=== PATIENT | female | born 2000 | race Caucasian/White ===

== ENCOUNTER 2020-08-20 08:56 | Emergency (ER) | payer BC, SELFPAY ==
[2020-08-20 08:58] VITALS: BP 118/61; PULSE 152; RESP 16; TEMP 36.6; O2SAT 98; BMI 24.2
[2020-08-20 09:04] VITALS: O2SAT 98
[2020-08-20 09:09] VITALS: BP 118/59; PULSE 121; RESP 20; O2SAT 99
--- NOTE | 2020-08-20 09:14 | EKG12_ITS ---
Test Reason : SOB/PALPS Blood Pressure : / mmHG Vent. Rate : 137 BPM Atrial Rate : 137 BPM P-R Int : 128 ms QRS Dur : 094 ms QT Int : 298 ms P-R-T Axes : 065 108 009 degrees QTc Int : 449 ms Sinus tachycardia Rightward axis Nonspecific ST and T wave abnormality Abnormal ECG Confirmed by CHANDLER SHEFFIELD, BELEM ([id number]), deputy editor in chief VICKEY CORDOBA ([id number]) on 08/22/2020 9:47:26 AM Referred By: JACKIE Confirmed By:BELEM ARTEAGA MD
--- NOTE | 2020-08-20 09:15 | NURSING ---
NO OLD EKGS
--- NOTE | 2020-08-20 09:16 | CT_ITS ---
STUDY: CTA CHEST REASON FOR EXAM: Female, 20 years old. Dyspnea RADIATION DOSAGE (If Supplied By Facility): CTDIvol = ( 4.88 ) mGy, DLP = ( 167.65 ) mGycm TECHNIQUE: The examination was performed with the intravenous administration of IV 100mL Isovue-370. Post-processing of the angiographic images was performed, with multiplanar reformation and 3D reconstruction. Individualized dose optimization techniques were used for this CT. COMPARISON: None. FINDINGS: Multiple filling defects are seen in branches of the left lower lung pulmonary arteries. Small intraluminal filling defects in the right lower lobe pulmonary lesion as well. Normal thoracic aorta and visualized great vessels. There is no demonstrated aortic dissection. Normal heart and pericardium. Normal mediastinum. Normal hilar regions. Normal visualized trachea and bronchi. The lungs are well expanded. Mild bibasilar linear atelectasis. Normal pleura. Normal chest wall structures. Normal osseous structures. Normal visualized upper abdomen. CT/CTA Chest W/WO Contrast IMPRESSION: Intraluminal filling defects in both lower lobe pulmonary artery branches worse on the left side. Mild bibasilar atelectasis Electronically Signed: Alfonso Segura MD at 10:37 EDT , Service support ,
--- NOTE | 2020-08-20 09:17 | ED.DCSUM_ITS ---
- ER Visit Summary Date of Service: 08/20/20 Chief Complaint: Shortness of breath History of Present Illness: The patient is a 20 F who presents with shortness of breath that began this morning. Patient states she woke up feeling short of breath. Patient states she felt her heart racing. Patient states she has a stabbing pain in her chest whenever she takes a deep breath. Patient states her pain is also worse whenever she lays on her side. Patient states that she also feels like she has trouble expelling her breath. Patient admits to a slight cough. Patient admits to some nausea but denies any vomiting. Patient denies any fevers or chills. Patient denies any recent travel or recent surgery. Patient denies any history of DVT or PE. Patient denies any history of cancer. Physical Examination: Vital signs are stable except for tachycardia of 152. Patient is afebrile. Patient is in no acute distress. Oral mucosa is pink and moist. Neck is supple. Trachea is midline. There is no JVD. Heart was regular and tachycardic. Lungs are clear and equal bilaterally. Abdomen is soft. Bowel sounds are normal. There is no tenderness. Cranial nerves II through XII are intact. There are no focal motor or sensory deficits noted. Extremities are intact. There is no calf tenderness or edema. Test Results: EKG was obtained. On my interpretation, it showed a sinus tachycardia with a rate of 137. ID interval, QRS interval, and QTc intervals were all normal. [place] was 108. There are nonspecific ST-T wave changes in the inferior leads. CBC shows a leukocytosis of 15.7. Comprehensive metabolic profile showed a mild hypokalemia 3.2. CTA of the chest was obtained. There are intraluminal filling defects in both lower lobes, worse on the left. This was interpreted by the radiologist and reviewed by myself. Emergency Department Course and Treatment: Patient was given IV fluids. Patient's heart rate improved to 115. Patient was started on Eliquis. Patient was given a prescription for Eliquis. Patient was instructed to follow-up with her primary care physician in 5 to 7 days. Patient understood and was agreeable with the plan. All questions were answered. Disposition: Discharge home Impression: Pulmonary embolism This note was generated with [employer] dictation software. It may contain incorrect words, spelling, and punctuation that were not noted in review of the chart prior to signing ED Disposition - Plan for ED Patient: Disposition: Home or Assisted Living Diagnosis: Pulmonary embolism Instructions: Pulmonary Embolism Prescriptions: Apixaban [Eliquis] 5 mg PO BID #74 tablet Prescription Printed Referrals: Jude Peace MD [Primary Care Provider] - 5-7 Days
[2020-08-20 09:37] LABS: Absolute Lymphocyte Count 0.35 X10^3/uL (0.83-4.51); Absolute Neutrophil Count 14.6 X10^3/uL (2.0-7.7); Basophil# 0.03 X10^3/uL; Basophil% 0.2 % (0-1); Hematocrit 37.4 % (37-47); Lymphocyte # 0.35 X10^3/ul (4.0); Lymphocyte % 2.2 % (19-41); Mean Corp Hgb Conc 32.1 g/dL (32-36); Mean Corpuscular Hgb 27.7 pg (27.0-32.0); Mean Corpuscular Volume 86.4 fL (81-99); Mean Platelet Vol. 9.8 fl (6.2-12.0); Monocyte# 0.64 X10^3/uL; Monocyte% 4.1 % (0-10); NRBC Flagged by Analyzer 0 % (0-5); Neutrophil # 14.63 X10^3/uL (2.7-7.7); Neutrophil % 93.1 % (47-70); POSITIVE DIFFERENTIAL YES; Platelet Count 235 K/mm3 (150-450); RBC Distribution Width CV 12.6 % (11.6-14.6); RBC Distribution Width SD 39.9 fl (35.1-43.9); Red Blood Count 4.33 M/mm3 (4.2-5.4); White Blood Count 15.7 K/mm3 (4.4-11.0)
[2020-08-20] MEDS: 0.9% Normal Saline 1,000 ML 1000 ML IV (09:43)
[2020-08-20 09:44] LABS: Differential Indicated SCAN CRITERIA MET
[2020-08-20 09:53] LABS: ALB/GLOB Ratio 1.2 RATIO (0.9-2.4); AST(SGOT) 7 U/L (15-37); Alanine Aminotransfer ALT/SGPT 16 U/L (13-56); Albumin, Serum 4.5 g/dL (3.2-5.0); Alkaline Phosphatase 40 U/L (45-117); Anion Gap 5 (5-15); BUN 14 mg/dL (7-18); Calcium,Total 9.3 mg/dL (8.5-10.1); Chloride 104 mmol/L (98-107); Creatinine, Serum 0.87 mg/dL (0.55-1.02); EST Glomerular Filtration Rate 88 mL/min (>60); Est Glom Filt Rate - Afr Amer 106 mL/min (>60); Estimated Creatinine Clearance 96.56 ml/min; Globulin 3.7 g/dL (2.2-4.2); Glucose 109 mg/dL (74-106); Potassium 3.2 mmol/L (3.5-5.1); Protein, Total 8.2 g/dL (6.4-8.2); Sodium Level 137 mmol/L (136-145)
[2020-08-20 10:55] VITALS: BP 105/69; PULSE 115; RESP 16; O2SAT 99
[2020-08-20] MEDS: APIXABAN 5 MG TABLET PO (12:47)
[2020-08-20 12:51] VITALS: BP 105/49; PULSE 135; RESP 12; O2SAT 98
--- NOTE | 2020-08-20 20:18 | ED.RN ---
patients mother called in at this time patient is having a hard time filling medication at this time due to patient needing prior approval from insurance company. at this time this nurse is working on getting patient medication approved
--- NOTE | 2020-08-20 20:40 | ED.RN ---
spoke with [facility]. Dr. Kelly medical control there. He will have to call in the AM and pre approve medication thru insurance. Spoke with Dr. Noel at this time. Patient will be given medication for tonight and tomorrow at this time until medication can be approved. Spoke with patients mother at this time made aware of plan of care. She aggress at this time. Called patient and left a message at this time and made her aware of the plan. Patient discharge paperwork faxed to [facility] center
[2020-08-20] MEDS: APIXABAN 5 MG TABLET 10 MG PO ×2 (21:04)
== END 2020-08-20 12:52 | disposition home or self-care (01) ==
PROVIDERS: Emergency Provider Emergency Medicine; PCP Pediatrics
DX: I26.99 Other pulmonary embolism without acute cor pulmonale (principal); E87.6 Hypokalemia
CPT/HCPCS: 71275; 80053; 85025; 93005; 99285; J7030; Q9967; A4216

== ENCOUNTER 2020-09-18 10:04 | Emergency (ER) | payer BC, SELFPAY ==
[2020-09-11 13:43] VITALS: BMI 26.3
[2020-09-18 10:04] VITALS: BP 127/75; PULSE 146; RESP 18; TEMP 36.5; O2SAT 97; BMI 25.0
[2020-09-18 10:12] VITALS: O2SAT 97
--- NOTE | 2020-09-18 10:20 | CT_ITS ---
STUDY: CTA CHEST REASON FOR EXAM: Female, 20 years old. Pulmonary embolism, high pretest probability RADIATION DOSAGE (If Supplied By Facility): CTDIvol = ( 8.12 ) mGy, DLP = ( 226.74 ) mGycm TECHNIQUE: The examination was performed with the intravenous administration of IV 100mL Isovue-370. Post-processing of the angiographic images was performed, with multiplanar reformation and 3D reconstruction. Individualized dose optimization techniques were used for this CT. COMPARISON: Comparison is made with prior study dated 08/20/2020. FINDINGS: Normal enhancement of the main pulmonary artery and right and left pulmonary arteries. Normal enhancement of the bilateral peripheral pulmonary arteries. There is no demonstrated pulmonary embolism. Normal thoracic aorta and visualized great vessels. There is no demonstrated aortic dissection. Normal heart and pericardium. Normal mediastinum. Normal hilar regions. Normal visualized trachea and bronchi. The lungs are well expanded. Mild residual bibasilar linear atelectasis. Normal pleura. Normal chest wall structures. Normal osseous structures. Normal visualized upper abdomen. CT/CTA Chest W/WO Contrast IMPRESSION: Normal CTA chest examination, without a demonstrated pulmonary embolism or arterial dissection. Mild residual linear atelectasis at the lung bases. Electronically Signed: Alfonso Segura MD at 12:02 EDT , Service support ,
--- NOTE | 2020-09-18 10:20 | EKG12_ITS ---
Test Reason : SOB Blood Pressure : / mmHG Vent. Rate : 128 BPM Atrial Rate : 128 BPM P-R Int : 140 ms QRS Dur : 090 ms QT Int : 310 ms P-R-T Axes : 070 115 027 degrees QTc Int : 452 ms Sinus tachycardia Right atrial enlargement Nonspecific ST abnormality Abnormal ECG Confirmed by CHANDLER SHEFFIELD, BELEM ([id number]), communications editor VICKEY CORDOBA ([id number]) on 09/20/2020 10:01:51 AM Referred By: MARIANA Confirmed By:BELEM ARTEAGA MD
--- NOTE | 2020-09-18 10:21 | EDS_ITS ---
HPI History of Present Illness Chief Complaint: Shortness of Breath Informant: patient Narrative Narrative: This is a very pleasant 20-year-old female who presents to the emergency department with chest pain and shortness of breath. She states that approximately 1 month ago she was diagnosed with bilateral pulmonary embolism and started on Eliquis. She only takes Flonase as her other medication. She states she has not missed any doses. Reportedly the pulmonary embolisms were unprovoked. She has followed up with Dr. Kenney. This morning she rolled over in bed and noticed that she had central mid chest pain with breathing. She states she feels her heart racing. She has had an increase in caffeine and anthropology finals coming up. [facility] Medical History (Updated 09/18/20 @ 14:[address] Doug Dunn DO) Pulmonary embolism Home Medications apixaban 5 mg PO BID #74 tablet 08/20/20 [Rx Last Taken 09/18/20] fluticasone propionate 50 mcg/actuation nasal spray,suspension 1 spray INTRANASAL BID 08/30/20 [History Last Taken 09/17/20] Allergy/AdvReac Type Severity Reaction Status Date / Time No Known Allergies Allergy Verified 09/18/20 10:07 Family History Sister Asthma Mother Bundle branch block Surgical History H/O wrist surgery History of ankle surgery Social History Smoking Status: Never smoker [facility] ED Constitutional Constitutional ED: Denies chills or weight loss Eyes Eyes: Denies change in vision or diplopia ENT ENT ED: Denies ear pain, rhinorrhea or sore throat Cardiovascular Cardiovascular: Reports chest pain, palpitations and racing heartbeat; Denies orthopnea Respiratory/Chest Respiratory/Chest: Reports dyspnea; Denies cough or orthopnea Gastrointestinal Gastrointestinal: Denies abdominal pain, diarrhea, nausea or vomiting Genitourinary Genitourinary ED: Denies dysuria, hematuria or urinary frequency Musculoskeletal Musculoskeletal: Denies arthralgias or myalgias Integumentary Denies abscess or rash Neurologic Neurologic: Denies headache(s) or weakness Psychiatric Psychiatric: Denies anxiety, depression, suicidal ideation or suicidal thoughts Endocrine Endocrinology: Denies polydipsia, polyphagia or polyuria Allergic/Immunologic Allergic/Immunologic ED: Denies mouth swelling, tongue swelling or urticaria EXAM Physical Exam Const Vital Signs: 09/18/20 10:04 09/18/20 10:39 09/18/20 14:19 Temperature 97.7 F L Temperature Source Temporal Pulse Rate 146 H 120 H Respiratory Rate 18 17 Respiratory Effort Normal Respiratory Depth Shallow Respiratory Pattern Tachypnea Blood Pressure 127/75 H 113/72 Blood Pressure Mean 92 85 Pulse Ox 97 99 Oxygen Delivery Method Room Air Room Air Room Air Positive well nourished and well developed General Appearance ED: well developed HEENT Reports normocephalic, head/scalp atraumatic and moist mucous membranes Eyes PERRL and EOMs intact bilaterally Neck no lymphadenopathy, supple and no JVD Resp normal respiratory effort and clear to auscultation bilaterally Cardio regular rate and no murmurs Rate: tachycardic GI normal to inspection, nondistended, normoactive bowel sounds and non-tender Palpation: soft Back/Spine no CVA tenderness and normal ROM Extremity normal to inspection General Extremety ED: Negative for edema General Extremity: Negative for edema Neuro oriented x3 and CN's II-XII intact bilaterally Sensorium / Orientation: alert Motor Exam: strength 5/5 throughout Psych mental status grossly normal Mood & Affect: Negative for depressed or tearful Skin no rashes or lesions noted and no wounds MDM MDM MDM Narrative Medical decision making narrative: Patient's blood work shows a leukocytosis of 19. Troponin negative. BMP negative not . Urinalysis negative. CTA of the chest was read by radiology and reviewed by myself and it demonstrates no pulmonary embolism effusion or dissection. Case was discussed with the patient's library media assistant Dr. Kit Kenney. He has requested an echocardiogram. This was performed and essentially negative. Case was rediscussed with him. He has come to the emergency department to visit with the patient. When observation is that the patient's heart rate increased from 94 to about 130 when he went into the room. Lab Data Attestation: I reviewed the patient's lab results. Labs: Laboratory Results - last 24 hr 09/18/20 09/18/20 09/18/20 10:39 10:39 10:39 WBC 19.5 H RBC 4.60 Hgb 12.5 Hct 38.7 MCV 84.1 MCH 27.2 MCHC 32.3 RDW Std Deviation 39.3 RDW Coeff of Vandana 12.9 Plt Count 260 MPV 10.0 Immature Gran % (Auto) 0.400 Neut % (Auto) 90.6 H Lymph % (Auto) 4.5 L [place] % (Auto) 3.8 Eos % (Auto) 0.4 Baso % (Auto) 0.3 Absolute Neuts (auto) 17.7 H Absolute Lymphs (auto) 0.88 Nucleated RBC % 0 Sodium 139 Potassium 3.7 Chloride 106 Carbon Dioxide 29.0 Anion Gap 4 L BUN 10 Creatinine 0.84 Estim Creat Clear Calc 100.01 Est GFR (MDRD) Af Amer 111 Est GFR (MDRD) Non-Af 91 BUN/Creatinine Ratio 11.9 Glucose 103 Calcium 9.7 Troponin I < 0.015 Serum , Qual NEGATIVE Urine Color Urine Clarity Urine pH Ur Specific [place] Urine Protein Urine Glucose (UA) Urine Ketones Urine Occult Blood Urine Nitrite Urine Bilirubin Urine Urobilinogen Ur Leukocyte Esterase Urine RBC Urine WBC Ur Squamous Epith Cells Urine Bacteria Urine Mucus 09/18/20 14:15 WBC RBC Hgb Hct MCV MCH MCHC RDW Std Deviation RDW Coeff of Vandana Plt Count MPV Immature Gran % (Auto) Neut % (Auto) Lymph % (Auto) Wall[place] % (Auto) Eos % (Auto) Baso % (Auto) Absolute Neuts (auto) Absolute Lymphs (auto) Nucleated RBC % Sodium Potassium Chloride Carbon Dioxide Anion Gap BUN Creatinine Estim Creat Clear Calc Est GFR (MDRD) Af Amer Est GFR (MDRD) Non-Af BUN/Creatinine Ratio Glucose Calcium Troponin I Serum , Qual Urine Color Yellow Urine Clarity Clear Urine pH 7.0 Ur Specific [place] 1.005 Urine Protein Negative Urine Glucose (UA) Normal Urine Ketones Negative Urine Occult Blood Negative Urine Nitrite Negative Urine Bilirubin Negative Urine Urobilinogen Normal Ur Leukocyte Esterase Negative Urine RBC 0 SEEN Urine WBC 0 SEEN Ur Squamous Epith Cells 0-5 SEEN Urine Bacteria 0 SEEN Urine Mucus 0 SEEN Radiography Diagnostic Testing: Radiology Impression Chest CTA 09/18/20 10:20 IMPRESSION: Normal CTA chest examination, without a demonstrated pulmonary embolism or arterial dissection. Mild residual linear atelectasis at the lung bases. Electronically Signed: Alfonso Segura MD at 12:02 EDT , Service support , Echocardiogram 09/18/20 12:49 Interpretation Summary The study was technically difficult. Contrast injection was performed. Left ventricular systolic function is normal. The estimated ejection fraction is 65 %. Mild diffuse mitral valve thickening. Trivial mitral valve insufficiency. Trivial tricuspid valve insufficiency. Trivial pulmonic valve insufficiency. No evidence for diastolic dysfunction. Ordering Physician: Doug Dunn Referring Physician: Jeanette Patel Performed By: Taiwo Mack RCS Initial EKG: Attestation: I personally reviewed and interpreted this EKG as follows: Comments: EKG demonstrates a sinus tachycardia at a rate of 128. No concerning featu Discharge Plan Triage Chief Complaint: Shortness of Breath ED Provider: Doug Dunn Dx/Rx/DC Orders Clinical Impression: Acute chest pain, Sinus tachycardia, Leukocytosis Instructions: ED Chest Pain, Noncardiac Prescriptions: No Action fluticasone propionate [Flonase Allergy Relief] 50 mcg/actuation spray,suspension 1 spray INTRANASAL BID RF: 0 apixaban 5 MG tablet 5 mg PO BID Qty: 74 RF: 0 Primary Care Provider: Jeanette Patel Referrals: Kit Kenney MD [STAFF PHYSICIAN] - Keep Cris appointment Jeanette Patel PA [Primary Care Provider] - Disposition Disposition: Home, self care
[2020-09-18] MEDS: 0.9% Normal Saline 1,000 ML 1000 ML IV (10:38)
[2020-09-18 10:39] VITALS: O2SAT 98
[2020-09-18 10:49] LABS: Absolute Lymphocyte Count 0.88 X10^3/uL (0.83-4.51); Absolute Neutrophil Count 17.7 X10^3/uL (2.0-7.7); Basophil# 0.06 X10^3/uL; Basophil% 0.3 % (0-1); Eosinophil# 0.08 X10^3/uL; Eosinophils% 0.4 % (0-5); Hematocrit 38.7 % (37-47); Hemoglobin 12.5 g/dL (12.0-15.0); Lymphocyte # 0.88 X10^3/ul (0.83-4.51); Lymphocyte % 4.5 % (19-41); Mean Corp Hgb Conc 32.3 g/dL (32-36); Mean Corpuscular Hgb 27.2 pg (27.0-32.0); Mean Corpuscular Volume 84.1 fL (81-99); Monocyte# 0.74 X10^3/uL; Monocyte% 3.8 % (0-10); NRBC Flagged by Analyzer 0 % (0-5); Neutrophil # 17.65 X10^3/uL (2.7-7.7); Neutrophil % 90.6 % (47-70); Platelet Count 260 K/mm3 (150-450); RBC Distribution Width CV 12.9 % (11.6-14.6); RBC Distribution Width SD 39.3 fl (35.1-43.9); White Blood Count 19.5 K/mm3 (4.4-11.0)
[2020-09-18 10:58] LABS: Internal QC Validated? YES +Cl - CLEAR BKGD; Pregnancy, Serum, hCG Quali. NEGATIVE Negative
[2020-09-18 11:10] LABS: Anion Gap 4 (5-15); BUN 10 mg/dL (7-18); BUN/Creat Ratio 11.9 RATIO (10-20); Calcium,Total 9.7 mg/dL (8.5-10.1); Chloride 106 mmol/L (98-107); Creatinine, Serum 0.84 mg/dL (0.55-1.02); EST Glomerular Filtration Rate 91 mL/min (>60); Est Glom Filt Rate - Afr Amer 111 mL/min (>60); Estimated Creatinine Clearance 100.01 ml/min; Glucose 103 mg/dL (74-106); Potassium 3.7 mmol/L (3.5-5.1); Sodium Level 139 mmol/L (136-145)
[2020-09-18 12:28] VITALS: O2SAT 96
--- NOTE | 2020-09-18 12:49 | ECHOCS_ITS ---
Reason For Study: Tachycardia, PE Procedure This was a 2D Doppler, Color Flow transthoracic echocardiogram. The study was technically difficult. Contrast injection was performed. Exam performed portable in ED. Left Ventricle Normal LV size. Left ventricular systolic function is normal. The estimated ejection fraction is 65 %. No evidence for diastolic dysfunction. No regional wall motion abnormalities noted. Right Ventricle Normal RV size. Normal systolic function. Atria Normal left atrium. Normal right atrium. No doppler evidence for ASD. Mitral Valve There is no mitral annular calcification. Mild diffuse mitral valve thickening. Trivial mitral valve insufficiency. Tricuspid Valve Normal tricuspid valve. Trivial tricuspid valve insufficiency. Aortic Valve Trisinus/trileaflet aortic valve. Normal aortic valve. Pulmonic Valve The pulmonic valve is not well visualized. Trivial pulmonic valve insufficiency. Great Vessels The aortic root is not well visualized. Pericardium/Pleural No pericardial effusion. Medication Diluted definity 2ml given slow IV push to enhance endocardial definition. MMode/2D Measurements & Calculations LVIDd: 3.8 cm IVSd: 1.00 cm LA dimension: 2.6 cm LVIDs: 2.5 cm LVPWd: 1.1 cm RVDd: 3.7 cm FS: 33.7 % LAV(MOD-bp): 18.7 ml LA A4 area: 11.2 cm2 RA A4 area: 11.3 cm2 LAV(MOD-bp) Indexed: 10.4 ml/m2 LAV(MOD-sp2): 17.1 ml LAV(MOD-sp4): 21.1 ml Time Measurements MV dec time: 0.21 sec Doppler Measurements & Calculations MV E max jun: 107.3 cm/sec Lat Peak E' Jun: 19.5 cm/sec Med Peak E' Jun: 20.2 cm/sec MV A max jun: 74.4 cm/sec E/E' lat: 5.5 E/E' med: 5.3 MV E/A: 1.4 Ao V2 max: 135.3 cm/sec LV V1 max: 128.6 cm/sec PA V2 max: 105.9 cm/sec Ao max P.3 mmHg LV V1 max P.6 mmHg ECHO/Echo Complete W/ Contrast Interpretation Summary The study was technically difficult. Contrast injection was performed. Left ventricular systolic function is normal. The estimated ejection fraction is 65 %. Mild diffuse mitral valve thickening. Trivial mitral valve insufficiency. Trivial tricuspid valve insufficiency. Trivial pulmonic valve insufficiency. No evidence for diastolic dysfunction. Ordering Physician: Doug Dunn Referring Physician: Jeanette Patel Performed By: Taiwo Mack RCS
[2020-09-18 14:19] VITALS: BP 113/72; PULSE 120; RESP 17; O2SAT 99
[2020-09-18 14:21] LABS: Bacteria 0 SEEN /hpf (None Seen); Mucous, Urine 0 SEEN /hpf (<or=2+); Red Blood Cells-Urine 0 SEEN /hpf (0-5); White Blood Cells 0 SEEN /hpf (0-5)
[2020-09-18 14:22] LABS: Color, Urine Yellow (Yellow); Glucose, Dipstick Normal (Normal); Ketone-Dipstick Negative (Negative); Leukocyte Esterase-Dipstick Negative /ul (Negative); Nitrite-Dipstick Negative (Negative); Occult Blood-Urine Negative /ul (Negative); Protein-Dipstick Negative (Negative); Specific Gravity, Urine 1.005 (1.002-1.030); Urine Bilirubin Dipstick Negative (Negative); Urine Clarity Clear (Clear); Urine Urobilinogen Normal (Normal)
[2020-09-18 14:27] LABS: Squamous Epithelial Cells - UA 0-5 SEEN /hpf (5-10)
[2020-09-18 15:16] VITALS: BP 113/74; PULSE 103; RESP 16; O2SAT 98
== END 2020-09-18 15:17 | disposition home or self-care (01) ==
PROVIDERS: Emergency Provider Emergency Medicine; PCP Physician Assistant
DX: R07.1 Chest pain on breathing (principal); R06.02 Shortness of breath; R00.0 Tachycardia, unspecified; D72.829 Elevated white blood cell count, unspecified; Z79.01 Long term (current) use of anticoagulants; I26.99 Other pulmonary embolism without acute cor pulmonale
CPT/HCPCS: 71275; 80048; 81001; 84484; 84703; 85025; 93005; 93306; 96360; 99284; J7030; Q9957; Q9967; A4216; C8929

== ENCOUNTER → 2021-03-12 14:28 | Outpatient (CLI) | payer BC, SELFPAY ==
[2021-03-18 11:08] LABS: Dilute Russell Viper Venom 36.4 sec (0.0-47.0); PTT-LA 41.4 sec (0.0-51.9); Thrombin Time 19.6 sec (0.0-23.0)
[2021-03-18 14:59] LABS: Protein S, Funtional 67 % (63-140)
[2021-03-18 15:00] LABS: Anti-Cardiolipin Ab, IgA, Qn < 9 APL U/mL (0-11); Anti-Cardiolipin Ab, IgG, Qn < 9 GPL U/mL (0-14); Anti-Cardiolipin Ab, IgM, Qn 18 MPL U/mL (0-12); Antithrombin 3 Function 107 % (75-135); Dilute Prothrombin Time (dPT) 31.9 sec (0.0-55.0); Interpretation Comment: (.); Protein C, Functional 98 % (73-180); dPT Confirm Ratio 1.01 Ratio (0.00-1.40)
== END ==
PROVIDERS: PCP Physician Assistant; Referring Provider Internal Medicine Critical Care Medicine; Visit Provider Internal Medicine Critical Care Medicine
DX: I26.99 Other pulmonary embolism without acute cor pulmonale (principal)
CPT/HCPCS: 36415; 81240; 81241; 85300; 85303; 85306; 86147

== ENCOUNTER 2021-04-22 16:00 | Emergency (ER) | payer BC, SELFPAY ==
[2021-04-22 16:00] VITALS: BP 139/80; PULSE 100; RESP 18; TEMP 35.8; O2SAT 132; BMI 25.4
--- NOTE | 2021-04-22 16:06 | RAD_ITS ---
STUDY: X-RAY CHEST REASON FOR EXAM: Female, 20 years old. SOB TECHNIQUE: PA and lateral views of the chest. COMPARISON: None. FINDINGS: The lungs are clear and expanded. There is no demonstrated pleural abnormality. Normal size heart. Normal mediastinum and primitivo. Normal visualized pulmonary arteries. Normal visualized aortic arch and descending thoracic aorta. Normal visualized thoracic spine. Normal visualized ribs, clavicles, and shoulders. There is no demonstrated abnormality of the visualized soft tissue structures of the upper abdomen. RAD/Chest PA and Lateral IMPRESSION: Normal x-ray examination of the chest. Electronically Signed: Stephen Garner MD at 16:44 EST Tel , Service support ,
--- NOTE | 2021-04-22 17:42 | CT_ITS ---
STUDY: CTA CHEST REASON FOR EXAM: Female, 20 years old. Dyspnea. Pleuritic chest pain. History of pulmonary embolus. RADIATION DOSAGE (If Supplied By Facility): CTDIvol = ( 5.99 ) mGy, DLP = ( 161.30 ) mGycm TECHNIQUE: The examination was performed with the intravenous administration of IV 100mL Isovue-370. Post-processing of the angiographic images was performed, with multiplanar reformation and 3D reconstruction. Individualized dose optimization techniques were used for this CT. COMPARISON: Chest, 04/22/2021. CTA of the chest, 09/18/2020. FINDINGS: Normal enhancement of the main pulmonary artery and right and left pulmonary arteries. Normal enhancement of the bilateral peripheral pulmonary arteries. There is no demonstrated pulmonary embolism. Normal thoracic aorta and visualized great vessels. There is no demonstrated aortic dissection. Normal heart and pericardium. Normal mediastinum. Normal hilar regions. Normal visualized trachea and bronchi. The lungs are well expanded. Normal pulmonary parenchyma. Normal pleura. Normal chest wall structures. Normal osseous structures. Normal visualized upper abdomen. CT/CTA Chest W/WO Contrast IMPRESSION: Normal CTA chest examination, without a demonstrated pulmonary embolism or arterial dissection. No major interval change. Electronically Signed: Calvin Chakraborty DO at 19:04 EST Tel [phone], Service support ,
--- NOTE | 2021-04-22 17:44 | EDS_ITS ---
HPI History of Present Illness Chief Complaint: Shortness of Breath Detail of Chief Complaint: Pleuritic chest pain Informant: patient Onset/Context/Timing Onset: Today and Hours Context: Sudden Onset Timing: Intermittent Quality: Pleuritic Location: Anterior chest Current Severity: 0/10 Maximum Severity: Moderate Worsened by: Breathing Relieved by: Not breathing Associated Symptoms Associated Symptoms: Dyspnea Narrative Narrative: Patient is a 20-year-old female whose last normal menstrual period was 2 weeks ago and presents with pleuritic chest pain that started this morning. She states this pain is similar to the pain she had when she was diagnosed with pulmonary embolus July 2019. She had extensive work-up with no etiology for the PE. There is no family history. She is not on hormonal therapy. She denies leg pain, swelling discoloration. She denies fever, chills night sweats. Denies rhinorrhea, congestion or postnasal drainage. Denies sore throat. Denies cough. She denies nausea, vomiting diarrhea. She denies myalgias or arthralgias. Prior similar symptoms: Yes (Pulmonary embolus) Recent Illness/Hospitalization: No PFSH PFSH Medical History (Updated 04/22/21 @ 20:[address] Robert Salgado MD) Pulmonary embolism Home Medications fluticasone propionate 50 mcg/actuation nasal spray,suspension 1 spray INTRANASAL BID 08/30/20 [History Last Taken 09/17/20] Allergy/AdvReac Type Severity Reaction Status Date / Time No Known Allergies Allergy Verified 04/22/21 16:03 Family History Sister Asthma Mother Bundle branch block Surgical History H/O wrist surgery History of ankle surgery Social History (Updated 04/22/21 @ 17:[address] Robert Salgado MD) Smoking Status: Never smoker alcohol intake: never substance use type: does not use ROS ROS ED Constitutional Constitutional ED: Denies chills, fever(s), subjective or sweats Eyes Eyes: Denies blurry vision, change in vision or diplopia ENT ENT ED: Denies ear pain, rhinorrhea or sore throat Cardiovascular Cardiovascular: Reports chest pain; Denies orthopnea, palpitations, paroxysmal nocturnal dyspnea or racing heartbeat Respiratory/Chest Respiratory/Chest: Reports dyspnea and dyspnea on exertion; Denies cough, orthopnea, paroxysmal nocturnal dyspnea or sputum Gastrointestinal Gastrointestinal: Denies abdominal pain, constipation, diarrhea, nausea or vomiting Genitourinary Genitourinary ED: Denies dysuria, hematuria or urinary frequency Musculoskeletal Musculoskeletal: Denies arthralgias, back pain, myalgias or neck pain Integumentary Denies abscess, Abrasions or rash Neurologic Neurologic: Denies headache(s), paresthesias or weakness EXAM Physical Exam Const Vital Signs: 04/22/21 16:00 04/22/21 17:59 04/22/21 18:11 Temperature 96.5 F L Temperature Source Temporal Pulse Rate 100 Respiratory Rate 18 Respiratory Effort Normal Respiratory Depth Normal Respiratory Pattern Normal Blood Pressure 139/80 H Blood Pressure Mean 99 Pulse Ox 132 Oxygen Delivery Method Room Air Room Air Room Air 04/22/21 19:18 Temperature Temperature Source Pulse Rate 114 H Respiratory Rate 18 Respiratory Effort Respiratory Depth Respiratory Pattern Blood Pressure 132/73 H Blood Pressure Mean 92 Pulse Ox 97 Oxygen Delivery Method Room Air Positive well nourished and well developed General Appearance ED: well developed and NAD; Negative for cyanotic, diaphoretic or pallor HEENT HEENT Narrative: Head is atraumatic normocephalic. Ears normal. Nares patent. Mucosa moist. Eyes PERRL and EOMs intact bilaterally General Eye ED: Negative for pale conjunctiva or scleral icterus Neck no lymphadenopathy, supple and no JVD Resp normal respiratory effort and clear to auscultation bilaterally Cardio regular rate, regular rhythm, S1 normal heart sound, S2 normal heart sound and no murmurs GI normal to inspection, nondistended, normoactive bowel sounds and non-tender Palpation: soft Back/Spine no CVA tenderness Cervical Spine: Negative for cervical spine tenderness Thoracic Spine / Upper Back: Negative for thoracic spinal tenderness or paraspinal muscle tenderness Extremity normal to inspection Extremity Narrative: There is no asymmetry, swelling, discoloration, leg vein distention, palpable cords or tenderness along the distribution of the deep venous system. General Extremety ED: Negative for edema or tenderness General Extremity: Negative for edema Neuro oriented x3 and CN's II-XII intact bilaterally Neuro Narrative: Gait observed and normal. Sensorium / Orientation: alert Psych mental status grossly normal Skin no rashes or lesions noted and no wounds General Skin Exam: Negative for jaundice or pallor MDM MDM MDM Narrative Medical decision making narrative: Differential diagnosis is pneumonia, pleurisy versus PE. Chest x-ray ordered per nursing staff. Reviewed chest x-ray and there is no acute abnormality. Two views were obtained. Lab Data Attestation: I reviewed the patient's lab results. Lab results narrative: CBC is remarkable an elevated white count. D-dimer is elevated. Electrolyte panel is normal. With moderate pretest probability and elevated D-dimer CTA was obtained. CTA was negative. Labs: Laboratory Results - last 24 hr 04/22/21 04/22/21 04/22/21 18:13 18:13 18:13 WBC 14.5 H RBC 4.34 Hgb 11.5 L Hct 35.5 L MCV 81.8 MCH 26.5 L MCHC 32.4 RDW Std Deviation 39.8 RDW Coeff of Vandana 13.3 Plt Count 276 MPV 10.5 Immature Gran % (Auto) 0.400 Neut % (Auto) 86.8 H Lymph % (Auto) 6.9 L [place] % (Auto) 5.6 Eos % (Auto) 0.1 Baso % (Auto) 0.2 Absolute Neuts (auto) 12.6 H Absolute Lymphs (auto) 1.00 Nucleated RBC % 0 D-Dimer Quant (PE/DVT) 2.45 H* Sodium 138 Potassium 3.6 Chloride 106 Carbon Dioxide 23.0 Anion Gap 9 BUN 8 Creatinine 0.82 Estim Creat Clear Calc 102.45 Est GFR (MDRD) Af Amer 113 Est GFR (MDRD) Non-Af 93 BUN/Creatinine Ratio 9.7 L Glucose 87 Calcium 9.4 Radiography Chest X-Ray - ED: 2 View and Read by ED Physician (Cardiac silhouette size normal. Lung parenchyma normal. Perihilar mediastinum normal. Osseous structures normal.) Diagnostic Testing: Clinical Impression(s) from Imaging Studies Chest X-Ray 04/22/21 16:06 IMPRESSION: Normal x-ray examination of the chest. Electronically Signed: Stephen Garner MD at 16:44 EST Tel , Service support , Chest CTA 04/22/21 17:42 IMPRESSION: Normal CTA chest examination, without a demonstrated pulmonary embolism or arterial dissection. No major interval change. Electronically Signed: Calvin Chakraborty DO at 19:04 EST Tel [phone], Service support , Discharge Plan Triage Chief Complaint: Shortness of Breath ED Provider: Robert Salgado Dx/Rx/DC Orders Clinical Impression: Pleurisy Instructions: ED Pleurisy Prescriptions: No Action fluticasone propionate [Flonase Allergy Relief] 50 mcg/actuation spray,suspension 1 spray INTRANASAL BID RF: 0 Primary Care Provider: Jeanette Patel Referrals: Jeanette Patel, SHIVA [Primary Care Provider] - 3-5 Days if not improving Activity Restrictions/Additional Instructions: Take 3-4 ibuprofen tablets every 6-8 hours for pain. You should feel improvement within 24 hours Disposition Disposition: Home, Self Care
[2021-04-22] MEDS: 0.9% Normal Saline 1,000 ML 150 ML IV (18:08)
[2021-04-22 18:35] LABS: Absolute Neutrophil Count 12.6 X10^3/uL (2.0-7.7); Basophil# 0.03 X10^3/uL; Basophil% 0.2 % (0-1); Eosinophil# 0.02 X10^3/uL; Eosinophils% 0.1 % (0-5); Hematocrit 35.5 % (37-47); Hemoglobin 11.5 g/dL (12.0-15.0); Lymphocyte % 6.9 % (19-41); Mean Corp Hgb Conc 32.4 g/dL (32-36); Mean Corpuscular Hgb 26.5 pg (27.0-32.0); Mean Corpuscular Volume 81.8 fL (81-99); Mean Platelet Vol. 10.5 fl (6.2-12.0); Monocyte# 0.82 X10^3/uL; Monocyte% 5.6 % (0-10); NRBC Flagged by Analyzer 0 % (0-5); Neutrophil % 86.8 % (47-70); Platelet Count 276 K/mm3 (150-450); RBC Distribution Width CV 13.3 % (11.6-14.6); RBC Distribution Width SD 39.8 fl (35.1-43.9); Red Blood Count 4.34 M/mm3 (4.2-5.4); White Blood Count 14.5 K/mm3 (4.4-11.0)
[2021-04-22 18:51] LABS: Anion Gap 9 (5-15); BUN 8 mg/dL (7-18); BUN/Creat Ratio 9.7 RATIO (10-20); Calcium,Total 9.4 mg/dL (8.5-10.1); Chloride 106 mmol/L (98-107); Creatinine, Serum 0.82 mg/dL (0.55-1.02); EST Glomerular Filtration Rate 93 mL/min (>60); Est Glom Filt Rate - Afr Amer 113 mL/min (>60); Estimated Creatinine Clearance 102.45 ml/min; Glucose 87 mg/dL (74-106); Potassium 3.6 mmol/L (3.5-5.1); Sodium Level 138 mmol/L (136-145)
[2021-04-22 18:52] LABS: D-Dimer Quantitative (DVT/PE) 2.45 FEU/ug/m (0.27-0.49)
[2021-04-22 19:18] VITALS: BP 132/73; PULSE 114; RESP 18; O2SAT 97
[2021-04-22 20:25] VITALS: BP 115/71; PULSE 76; RESP 17; O2SAT 99
== END 2021-04-22 20:34 | disposition home or self-care (01) ==
PROVIDERS: Emergency Provider Emergency Medicine; PCP Physician Assistant
DX: R09.1 Pleurisy (principal); Z86.711 Personal history of pulmonary embolism
CPT/HCPCS: 71046; 71275; 80048; 85025; 85379; 96360; 96361; 99284; J7030; Q9967